=== PATIENT | male | born 1980 | race Caucasian/White ===

== ENCOUNTER 2022-08-17 11:08 | Inpatient (IN) | payer OTHER ==
[2022-08-17 12:27] VITALS: BMI 32.5
[2022-08-17] MEDS ORDERED: DICYCLOMINE HCL 10 MG CAPSULE PO PRN (13:14)
[2022-08-17] MEDS ORDERED: IBUPROFEN 600 MG TABLET (FP) PO PRN (13:14)
[2022-08-17] MEDS ORDERED: ONDANSETRON *ODT* 4 MG TABLET SL PRN (13:14)
[2022-08-17] MEDS ORDERED: LOPERAMIDE HCL 2 MG CAPSULE PO PRN (13:14)
[2022-08-17] MEDS ORDERED: IBUPROFEN 400 MG TABLET (FP) PO PRN (13:14)
[2022-08-17] MEDS ORDERED: MAG HYDROX/AL HYDROX/SIMETH 30 ML UNIT-DOSE CUP PO PRN (13:14)
[2022-08-17] MEDS ORDERED: MAGNESIUM CITRATE 300 ML BOTTLE PO PRN (13:14)
[2022-08-17] MEDS ORDERED: ACETAMINOPHEN 325 MG TABLET (FP) PO PRN (13:14)
[2022-08-17] MEDS ORDERED: MAGNESIUM HYDROX 2400MG/30ML ORAL SUSPENSION 30 ML CUP PO PRN (13:14)
[2022-08-17] MEDS ORDERED: NALOXONE HCL (KLOXXADO) 8 MG SPRAY NS PRN (13:14)
[2022-08-17] MEDS ORDERED: BENZOCAINE/MENTHOL (CHLORASEPTIC ) LOZENGE MM PRN (13:14)
[2022-08-17] MEDS ORDERED: BISMUTH SUBSALICYLATE 524 MG/30 ML PO PRN (13:14)
[2022-08-17] MEDS ORDERED: methaDONE HCL 10 MG TABLET (FOR DETOX USE ONLY) PO ONE (14:00)
[2022-08-17] MEDS ORDERED: methaDONE HCL 10 MG TABLET (FOR DETOX USE ONLY) ONE (14:06)
[2022-08-17] MEDS: diazePAM 5 MG TABLET PO PRN ×2 (14:27→22:30)
[2022-08-17] MEDS: METHOCARBAMOL 500 MG TABLET PO PRN (14:28)
[2022-08-17] MEDS: cloNIDine HCL 0.1 MG TABLET PO PRN (14:28)
[2022-08-17] MEDS: ACETAMINOPHEN 325 MG TABLET (FP) PO PRN (14:32)
[2022-08-17] MEDS: PRENATAL VITAMINS W/ FOLIC ACID TABLET (FP) PO SCH (14:33)
[2022-08-17 15:55] LABS: HEMATOCRIT 35.3 % (35.4-49); MCH 29.7 pg (25.7-33.7); MEAN CELL VOLUME 87.6 fl (80-96); MEAN PLT VOLUME 6.9 fl (7.5-11.1); PLATELET COUNT 284 10^3/uL (134-434); RBC 4.03 M/mm3 (4.00-5.60); RDW 13.5 % (11.9-15.9); WHITE BLOOD COUNT 7.1 K/mm3 (4.0-10.0)
[2022-08-17 16:31] LABS: CALCIUM 9.6 mg/dL (8.5-10.1)
[2022-08-17 16:32] LABS: ALBUMIN 3.5 g/dl (3.4-5.0); BLOOD UREA NITROGEN 15.6 mg/dL (7-18)
[2022-08-17 16:35] LABS: CREATININE 0.8 mg/dL (0.55-1.3)
[2022-08-17 16:36] LABS: BILIRUBIN,TOTAL 0.6 mg/dL (0.2-1)
[2022-08-17] MEDS: MELATONIN 5 MG TABLETS PO SCH (22:28)
[2022-08-17] MEDS: THIAMINE HCL 100 MG TABLET (FP) PO SCH (22:28)
[2022-08-18] MEDS: PRENATAL VITAMINS W/ FOLIC ACID TABLET (FP) PO SCH (10:13)
[2022-08-18] MEDS: METHOCARBAMOL 500 MG TABLET PO PRN (10:13)
[2022-08-18] MEDS: diazePAM 5 MG TABLET PO PRN ×3 (10:14→22:15)
[2022-08-18] MEDS: cloNIDine HCL 0.1 MG TABLET PO PRN ×2 (14:27→22:15)
[2022-08-18] MEDS: THIAMINE HCL 100 MG TABLET (FP) PO SCH (22:15)
[2022-08-18] MEDS: MELATONIN 5 MG TABLETS PO SCH (22:16)
[2022-08-19] MEDS: hydrOXYzine PAMOATE 25 MG CAPSULE (FP) PO PRN ×2 (00:57→10:22)
[2022-08-19] MEDS: METHOCARBAMOL 500 MG TABLET PO PRN ×3 (00:57→22:10)
[2022-08-19] MEDS: diazePAM 5 MG TABLET PO PRN ×4 (02:16→22:10)
[2022-08-19] MEDS ORDERED: methaDONE HCL 10 MG TABLET (FOR DETOX USE ONLY) PO ONE (10:00)
[2022-08-19] MEDS: PRENATAL VITAMINS W/ FOLIC ACID TABLET (FP) PO SCH (10:21)
[2022-08-19] MEDS: cloNIDine HCL 0.1 MG TABLET PO PRN ×2 (10:22→22:10)
[2022-08-19 13:39] LABS: GLUCOSE,FASTING 106 mg/dL (74-106)
[2022-08-19 13:43] LABS: SGOT/AST 20 U/L (15-37); SGPT/ALT 52 U/L (13-61)
[2022-08-19] MEDS: MELATONIN 5 MG TABLETS PO SCH (22:08)
[2022-08-19] MEDS: THIAMINE HCL 100 MG TABLET (FP) PO SCH (22:10)
[2022-08-20] MEDS: diazePAM 5 MG TABLET PO PRN ×2 (03:02→10:05)
[2022-08-20] MEDS: PRENATAL VITAMINS W/ FOLIC ACID TABLET (FP) PO SCH (10:05)
[2022-08-20] MEDS: hydrOXYzine PAMOATE 25 MG CAPSULE (FP) PO PRN (19:56)
[2022-08-20] MEDS: METHOCARBAMOL 500 MG TABLET PO PRN (19:56)
[2022-08-20] MEDS: MELATONIN 5 MG TABLETS PO SCH (22:27)
[2022-08-20] MEDS: THIAMINE HCL 100 MG TABLET (FP) PO SCH (22:27)
[2022-08-21] MEDS: hydrOXYzine PAMOATE 25 MG CAPSULE (FP) PO PRN ×2 (02:34→17:05)
[2022-08-21] MEDS: METHOCARBAMOL 500 MG TABLET PO PRN ×3 (02:34→22:19)
[2022-08-21] MEDS: PRENATAL VITAMINS W/ FOLIC ACID TABLET (FP) PO SCH (09:31)
[2022-08-21] MEDS ORDERED: methaDONE HCL 10 MG TABLET (FOR DETOX USE ONLY) PO ONE (10:00)
[2022-08-21 21:27] VITALS: RESP 18
[2022-08-21] MEDS: MELATONIN 5 MG TABLETS PO SCH (22:20)
[2022-08-21] MEDS: THIAMINE HCL 100 MG TABLET (FP) PO SCH (22:20)
[2022-08-22] MEDS: ACETAMINOPHEN 325 MG TABLET (FP) PO PRN (00:50)
[2022-08-22] MEDS: hydrOXYzine PAMOATE 25 MG CAPSULE (FP) PO PRN (00:50)
[2022-08-22 09:12] VITALS: BP 119/57; PULSE 80; TEMP 97.5
== END 2022-08-22 09:32 | disposition home or self-care (01) | DRG 773 ==
LOC: YASAS 11:08 → Y6N 14:10
PROVIDERS: ADMIT Allergy & Immunology; ATTEND Surgery
PROC: HZ2ZZZZ Detoxification Services for Substance Abuse Treatment (ICD-10-PCS; principal; 2022-08-17)
DX: F11.23 Opioid dependence with withdrawal (principal); F14.20 Cocaine dependence, uncomplicated; Z28.310 Unvaccinated for COVID-19; Z28.9 Immunization not carried out for unspecified reason
CPT/HCPCS: 36415; 80053; 82947; 84450; 84460; 85027; 86780; C9803-CS; U0003; U0005